=== PATIENT | female | born 1960 ===

== ENCOUNTER 2018-08-02 16:49 | Emergency (ER) | payer OTHER ==
[2018-08-02 16:59] VITALS: RESP 18; TEMP 99
[2018-08-02] MEDS ORDERED: Sodium Chloride 0.9% 1,000 ML IV ONE (17:27)
--- NOTE | 2018-08-02 17:44 | C.PDOC ---
History Of Present Illness 58 year old female patient otherwise well brought to the ER by EMS and daughter s/p pre-syncopal episode at home. Patient reports she had a vein strip for varicose veins x2 days ago at a surgical center. Patient's LE was wrapped with bandage for 24 hours. Patient took it off today and as she was about to shower, she felt dizzy and fell into a chair. Patient did not have a syncopal episode but needed assistance. At the time, patient had left-sided chest pressure and paresthesia on her right jaw along with diaphoresis. Currently, patient feels unsteady but denies headache, fever, chills, chest pain, dizziness and SOB. Time Seen by Provider: 08/02/18 17:14 Chief Complaint (Nursing): Dizziness/Lightheaded History Per: Patient History/Exam Limitations: no limitations Onset/Duration Of Symptoms: Days (x1) Current Symptoms Are (Timing): Better Past Medical History Reviewed: Historical Data, Nursing Documentation, Vital Signs Vital Signs: Last Vital Signs Temp 99 F 08/02/18 16:58 Pulse 64 08/02/18 16:58 Resp 18 08/02/18 16:58 BP 112/72 08/02/18 16:58 Pulse Ox 98 08/02/18 16:58 - Medical History PMH: Hyperlipidemia Family History: States: Unknown Family Hx - Social History Hx Alcohol Use: No Hx Substance Use: No - Immunization History Hx Tetanus Toxoid Vaccination: No Hx Influenza Vaccination: No Hx Pneumococcal Vaccination: Yes Review Of Systems Except As Marked, All Systems Reviewed And Found Negative. Constitutional: Positive for: Other (unsteady). Negative for: Fever, Chills Cardiovascular: Negative for: Chest Pain Respiratory: Negative for: Shortness of Breath Neurological: Negative for: Headache, Dizziness Physical Exam - Physical Exam Appears: Non-toxic, No Acute Distress Skin: Normal Color, Warm, Dry Head: Normacephalic Eye(s): bilateral: Normal Inspection, EOMI Chest: Symmetrical, No Deformity Cardiovascular: Rhythm Regular Respiratory: Normal Breath Sounds Gastrointestinal/Abdominal: Soft, No Tenderness Extremity: Other (varicose veins b/l LE; incision on left medial thigh) Pulses: Left Dorsalis Pedis: Normal, Right Dorsalis Pedis: Normal Neurological/Psych: Oriented x3, Normal Speech ED Course And Treatment - Laboratory Results Result Diagrams: 08/02/18 17:39 10/06/18 17:39 O2 Sat by Pulse Oximetry: 98 (RA) Pulse Ox Interpretation: Normal Medical Decision Making Medical Decision Making: Impression: Vasovagal syndrome Plans: -- chem lab -- blood work -- CXR -- IV fluids Disposition Counseled Patient/Family Regarding: Studies Performed, Need For Followup - Disposition Disposition: HOME/ ROUTINE Disposition Time: 19:03 Condition: IMPROVED Instructions: Vasovagal Response (DC) Forms: Gen Discharge Inst Portuguese, [employer] (Portuguese) - POA Present On Arrival: None - Clinical Impression Clinical Impression: Vaso vagal episode - Scribe Statement The provider has reviewed the documentation as recorded by the Donna Shipley Do Provider Attestation: All medical record entries made by the Anatoliyibe were at my direction and personally dictated by me. I have reviewed the chart and agree that the record accurately reflects my personal performance of the history, physical exam, medical decision making, and the department course for this patient. I have also personally directed, reviewed, and agree with the discharge instructions and disposition.
[2018-08-02] MEDS ORDERED: Sodium Chloride 0.9% 1,000 ML ONE (17:46)
[2018-08-02 17:58] LABS: BASO # 0.1 K/uL (0.0-0.2); BASO % 0.6 % (0.0-2.0); EOS # 0.1 K/uL (0.0-0.7); EOS % 1.3 % (0.0-4.0); HEMOGLOBIN 13.7 g/dL (11.0-16.0); LYMPH # 2.2 K/uL (1.0-4.3); LYMPH % 23.4 % (20.0-40.0); MEAN CELL VOLUME 92.4 fL (81.0-99.0); MEAN CORPUSCULAR HEMOGLOBIN 31.9 pg (27.0-31.0); MEAN CORPUSCULAR HGB CONC 34.5 g/dL (33.0-37.0); MONO # 0.6 K/uL (0.0-0.8); MONO % 6.5 % (0.0-10.0); NEUT # 6.4 K/uL (1.8-7.0); NEUT % 68.2 % (50.0-75.0); NRBC % 0.1 % (0.0-2.0); RBC 4.3 Mil/uL (3.80-5.20); RED CELL DISTRIBUTION WIDTH 12.2 % (11.5-14.5); WHITE BLOOD COUNT 9.3 K/uL (4.8-10.8)
[2018-08-02 18:00] LABS: BLOOD UREA NITROGEN 16 mg/dL (7-17); CALCIUM 9.6 mg/dl (8.6-10.4); GFR NON-AFRICAN AMERICAN > 60
--- NOTE | 2018-08-02 18:01 | RAD ---
Date of service: 08/02/2018 PROCEDURE: CHEST RADIOGRAPH, 1 VIEW HISTORY: AMS COMPARISON: Comparison made with chest radiograph dated 08/19/2012 FINDINGS: LUNGS: Poor inspiration with low lung volumes, crowded bronchovascular markings and mild bibasilar atelectasis PLEURA: No pneumothorax or pleural fluid seen. CARDIOVASCULAR: Normal. OSSEOUS STRUCTURES: No significant abnormalities. VISUALIZED UPPER ABDOMEN: Normal. OTHER FINDINGS: None. IMPRESSION: Poor inspiration with low lung volumes, crowded bronchovascular markings and mild bibasilar atelectasis
[2018-08-02 19:14] VITALS: BP 120/79; PULSE 65; O2SAT 99
== END 2018-08-02 19:38 | disposition home or self-care (01) ==
LOC: C.ER 16:49
DX: R55 Syncope and collapse (principal)
CPT/HCPCS: 71045; 80048; 82948; 84484; 85025; 96360; 99285; J7030